=== PATIENT | female | born 1990 | race Caucasian/White ===

== ENCOUNTER 2016-06-12 13:50 | Emergency (ER) | payer OTHER ==
[2016-06-12] MEDS ORDERED: KETOROLAC 60 MG/2 ML VIAL IM STA (15:18)
[2016-06-12] MEDS ORDERED: METHOCARBAMOL 500 MG TABLET PO STA (15:19)
[2016-06-12] MEDS ORDERED: DEXAMETHASONE 10 MG/ML VIAL PO STA (15:19)
[2016-06-12] MEDS ORDERED: METHOCARBAMOL 500 MG TABLET PO ONE (15:27)
[2016-06-12] MEDS ORDERED: CHERRY SYRUP 10 ML UDC PO ONE (15:28)
[2016-06-12] MEDS ORDERED: DEXAMETHASONE 10 MG/ML VIAL ONE (15:28)
[2016-06-12] MEDS ORDERED: KETOROLAC 60 MG/2 ML VIAL ONE (15:28)
[2016-06-12] MEDS ORDERED: HYDROmorphone 2 MG TABLET PO STA (16:30)
[2016-06-12] MEDS ORDERED: HYDROmorphone 2 MG TABLET ONE (16:34)
== END 2016-06-12 16:53 | disposition home or self-care (01) ==
DX: M54.6 Pain in thoracic spine (principal); G89.21 Chronic pain due to trauma; Z88.5 Allergy status to narcotic agent
CPT/HCPCS: 96372; 99283; 99284; A9270

== ENCOUNTER 2018-08-26 09:01 | Day surgery (SDC) | payer OTHER ==
[2018-08-26] MEDS ORDERED: LEVONORGESTREL 1 EACH IUD IY ONE (09:02)
[2018-08-26 09:32] LABS: HCG UR QUAL NEGATIVE
[2018-08-26] MEDS ORDERED: LACTATED RINGERS 1,000 ML IV ONE ×2 (09:33→09:59)
--- NOTE | 2018-08-26 10:03 | ANESTHESIA ---
Pre-Anesthesia VS, & Labs - Diagnosis desires contraception - Procedure Placement of Intrauterine device under sedation by anesthesia Vital Signs: Temp Pulse Resp BP Pulse Ox 36.7 C 82 16 123/73 100 08/26/18 09:24 08/26/18 09:24 08/26/18 09:24 08/26/18 09:24 08/26/18 09:24 Height 5 ft 6 in Weight (kg) 63.5 kg - NPO >8 hours - Is Patient ?: No Home Medications and Allergies Home Medications: Ambulatory Orders Duloxetine HCl 80 mg PO 08/23/18 Fluticasone [Flonase] 1 sprays [place] DAILY 08/23/18 Loratadine [Claritin] 10 mg PO 08/23/18 Norethindrone-E.estradiol-Iron [Loestrin Fe 1.5-30 Tablet] 1 each PO 08/23/18 Tretinoin [Retin-A] 15 gm TP 08/23/18 Gabapentin 900 mg PO QPM 06/12/16 Duloxetine HCl 80 mg PO 08/23/18 Fluticasone [Flonase] 1 sprays [place] DAILY 08/23/18 Loratadine [Claritin] 10 mg PO 08/23/18 Norethindrone-E.estradiol-Iron [Loestrin Fe 1.5-30 Tablet] 1 each PO 08/23/18 Tretinoin [Retin-A] 15 gm TP 08/23/18 Allergies/Adverse Reactions: Allergies Allergy/AdvReac Type Severity Reaction Status Date / Time cyclobenzaprine HCl * Allergy Intermediate Edema Verified 08/23/18 10:41 [From Flexeril] oxycodone [Oxycodone] Allergy Intermediate Hallucinati Verified 08/23/18 10:42 ons Anes History & Medical History - Anesthetic History Anesthesia Complications: reports: No previous complications Family history of Anesthesia Complications: Denies Family history of Malignant Hyperthermia: Denies - Medical History Cardiovascular: reports: None Pulmonary: reports: None, Asthma Gastrointestinal: reports: None Urinary: reports: None Neuro: reports: Motion sickness Musculoskeletal: reports: None Endocrine/Autoimmune: reports: None Blood Disorders: reports: None Skin: reports: None Smoking Status: Current some day smoker Psychosocial: reports: Depression, Anxiety, Alcohol - Surgical History Eyes Ears Nose Throat (EENT): Tonsil/Adenoidectomy, Other Gynecologic: LEEP (Cervical surgery) Exam General: Alert, Oriented x3, Cooperative Dental: WNL Mouth Openin Fingerbreadth Neck Mobility: Normal Mallampati classification: II Thyromental Distance: 4-6 cm Respiratory: Lungs clear Cardiovascular: Regular rate Mental/Cognitive Status: Alert/Oriented X3 Cognitive Status: Within normal limits Plan Anesthesia Type: MAC Consent for Procedure(s) Verified and Reviewed: Yes Code Status: Attempt Resuscitation ASA classification: 2-Mild systemic disease Is this case an emergency?: No
[2018-08-26] MEDS ORDERED: LIDOCAINE 1% 50 ML MDV IM ONE (10:42)
[2018-08-26] MEDS ORDERED: MIDAZOLAM 2 MG/2 ML VIAL IVP ONE (10:45)
[2018-08-26] MEDS ORDERED: PROPOFOL 200 MG/20 ML VIAL IVP ONE (10:45)
[2018-08-26] MEDS ORDERED: KETAMINE 500 MG/10 ML VIAL IVP ONE (10:45)
[2018-08-26] MEDS ORDERED: LIDOCAINE-MPF 2% 5 ML VIAL IM ONE (10:45)
[2018-08-26] MEDS ORDERED: SODIUM CHLORIDE 0.9% 10 ML VIAL IV ONE (10:45)
[2018-08-26] MEDS ORDERED: fentaNYL 100 MCG/2 ML VIAL IVP ONE (10:45)
--- NOTE | 2018-08-26 11:05 | OPERATIVE REPORT ---
Operative Report - General Procedure Date: 08/26/18 Planned Procedure: Placement of Mirena IUD under sedation Pre-Op Diagnosis: Desire for IUD contraception Procedure Performed: Placement of Mirena IUD Post Op Diagnosis: Same as above - Procedure Note Primary Surgeon: Jennifer Anesthesia Provider: Faye Anesthesia Technique: MAC Estimated Blood Loss (mL): 2 Indications: PTSD and history of prior traumatic experiences with [employer] procedures Findings: Exam under sedation: The uterus was of normal size, shape, and consistency, and anteverted. The adnexa were benign. - Other Other Information/Narrative: Description of operation: The patient was brought to the operating room and placed supine on the operating table. She was then given sedation in the form of monitored anesthesia care. Her legs were placed in low lithotomy stirrups and she was prepped and draped in the usual sterile fashion. A timeout was performed. An exam under anesthesia was performed. A speculum was placed in her vagina and a paracervical block with 10 cc of 1% lidocaine was given. A single-tooth tenaculum was applied to her cervix and the uterus was sounded to 8 cm. A Mirena IUD was placed without incident and the string was shortened to 3 cm. The tenaculum was removed and bleeding from the tenaculum site was stopped with silver nitrate. Instruments were withdrawn from the vagina and the patient was awakened and taken to the same day surgery suite in stable condition.
[2018-08-26] MEDS ORDERED: HYDROcod/ACETAM 5/325 MG TABLET ONE (11:51)
[2018-08-26 12:22] VITALS: BP 116/70
== END 2018-08-26 09:02 | disposition home or self-care (01) ==
LOC: OR 09:01
PROVIDERS: ATTEND Obstetrics & Gynecology
PROC: 0UH97HZ Insertion of Contraceptive Device into Uterus, Via Natural or Artificial Opening (ICD-10-PCS; principal; 2018-08-26 10:15)
DX: Z30.430 Encounter for insertion of intrauterine contraceptive device (principal); F43.10 Post-traumatic stress disorder, unspecified; Z87.891 Personal history of nicotine dependence
CPT/HCPCS: 58300; 81025; A9270; J7120; J7298